=== PATIENT | female | born 2000 | race Hispanic/Latino ===

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

== ENCOUNTER 2020-03-09 19:21 | Emergency (ER) | payer SELFPAY ==
[~2020-03-09] VITALS: Ht 157.5 cm; Wt 70.3 kg
--- OUTSIDE RECORDS SUMMARY | 2020-03-09 19:23 | XMS REPORT ---
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 Allergies, Adverse Reactions, Alerts Allergy Name Allergy Type Status Severity Reaction(s) Onset Date Inactive Date Treating Clinician Comments No Known Allergies DA Active U 2016-12-22 00:00:00 Medications This patient has no known medications. Encounters Start Date/Time End Date/Time Encounter Type Admission Type Attending Clinicians Care Facility Care Department Encounter ID 2019-10-15 20:17:00 2019-10-15 20:17:00 Emergency E [id number] 2019-10-09 16:25:00 2019-10-09 16:25:00 Emergency E [facility] [id number] Results Test Description Test Time Test Comments Text Results Atomic Results Result Comments - XR CHEST 1 V 2020-03-03 06:12:00 Name: YULIA LEWIS : 2000 Age/S:20 /F [address] [facility] Unit#:[id number] Loc: [place] [address] Phys: Keyon Lew MD Dis Date: PHONE #: [phone] Status: PRE ER FAX #: [phone] Exam Date: 03/03/2020 Reason: Cough EXAMS: CPT CODE: [id number] XR CHEST 1 V 81125 AFTER HOURS SERVICE ON: 03/03/2020 6:12 AM AP Portable Chest Location Code M12 HISTORY: Cough FINDINGS: There are no infiltrates. There are no pleural effusions. There is no pneumothorax. Cardiac silhouette and mediastinum appear within normal limits. IMPRESSION: No active pulmonary findings. at 0612 Reported and signed by: Susan Meléndez M.D. CC: Keyon Lew MD Technologist: FERNANDA OLIVER RT(R),RDMS,CT Trnscrpt Data: 03/03/2020 (611) [email or web address] Orig Print D/T: S: 03/03/2020 (16) PAGE 1 Signed Report - US TRANSVAGINAL NON OB 2019-05-29 21:02:00 [facility] 2000 Age[facility]S: 19 / F [address] [facility] Unit #: [id number] Loc: [place] [address] Phys: Keyon Lew MD Acct: [id number] Dis Date: Status: REG ER PHONE #: [phone] Exam Date: 05/29/20192044 FAX #: [phone] Reason: PAIN EXAMS: CPT CODE: [id number] [place] [address] REASON FOR EXAM: Pelvic pain and abnormal bleeding EXAM ORDER DATE: 05/29/2019 7:45 PM Attending M.D.: Keyon Lew MD PROCEDURE: - US PELVIS COMPLETE, - DUP AB/PEL/SC COMP, - US TRANSVAGINAL NON OB FINDINGS: The transabdominal ultrasound shows the uterus measured 6.4 x 3.5 cm. The ovaries were not seen on the transabdominal exam. No evidence of free fluid or adnexal mass on the transabdominal exam. The transvaginal ultrasound shows the endometrial stripe measured 1 cm. The right ovary measured 2.6 x 1.6 cm. The left ovary measured 2 x 1.7 cm. Unremarkable ovarian flow is seen. Duplex scans of the ovarian arteries were performed. Cardenas scale images were supplemented with color-flow Doppler. Doppler flow velocity analysis (duplex Doppler) was performed. No fluid seen in the cul-de-sac. No evidence of IUP. IMPRESSION: Small (1.3 cm) complex area within the endometrial canal suggestive of blood products/debris. No other significant findings at 2101 Reported and signed by: Connor Byren M.D. CC: Keyon Lew MD Technologist: MARTA KENDALL Trnscb Date/Time: 05/29/2019 (2101) [email or web address] Orig Print D/T: S: 05/29/2019 (2104) Probe: [id number] PAGE 1 Signed Report - DUP AB/PEL/SC COMP 2019-05-29 21:02:00 [facility] 2000 Age/S: 19 / F [address] [facility] Unit #: [id number] Loc: [place] [address] Phys: Keyon Lew MD Acct: [id number] Dis Date: Status: REG ER PHONE #: [phone] Exam Date: 05/29/20192044 FAX #: [phone] Reason: PELVIC PAIN EXAMS: CPT CODE: [id number] DUP AB/PEL/SC COMP 51364 REASON FOR EXAM: Pelvic pain and abnormal bleeding EXAM ORDER DATE: 05/29/2019 7:45 PM Attending Min: Keyon Lew MD PROCEDURE: - US PELVIS COMPLETE, - DUP AB/PEL/SC COMP, - US TRANSVAGINAL NON OB FINDINGS: The transabdominal ultrasound shows the uterus measured 6.4 x 3.5 cm. The ovaries were not seen on the transabdominal exam. No evidence of free fluid or adnexal mass on the transabdominal exam. The transvaginal ultrasound shows the endometrial stripe measured 1 cm. The right ovary measured 2.6 x 1.6 cm. The left ovary measured 2 x 1.7 cm. Unremarkable ovarian flow is seen. Duplex scans of the ovarian arteries were performed. Cardenas scale images were supplemented with color-flow Doppler. Doppler flow velocity analysis (duplex Doppler) was performed. No fluid seen in the cul-de-sac. No evidence of IUP. IMPRESSION: Small (1.3 cm) complex area within the endometrial canal suggestive of blood products/debris. No other significant findings at 2102 Reported and signed by: Connor Byrne M.D. CC: Keyon Lew MD Technologist: MARTA KENDALL Trnscb Date/Time: 05/29/2019 (2101) [email or web address] Orig Print D/T: S: 05/29/2019 (2104) Probe: PAGE 1 Signed Report - US PELVIS COMPLETE 2019-05-29 21:02:00 Name: YULIA LEWIS : 2000 Age/S: 19 / F [address] [facility] Unit #: [id number] Loc: [place] [address] Phys: Keyon Lew MD Acct: [id number] Dis Date: Status: REG ER PHONE #: [phone] Exam Date: 05/29/20192044 FAX #: [phone] Reason: Pelvic pain and abnormal bleeding EXAMS: CPT CODE: [id number] US PELVIS COMPLETE 34774 REASON FOR EXAM: Pelvic pain and abnormal bleeding EXAM ORDER DATE: 05/29/2019 7:45 PM Attending Min: Keyon Lew MD PROCEDURE: - US PELVIS COMPLETE, - DUP AB/PEL/SC COMP, - US TRANSVAGINAL NON OB FINDINGS: The transabdominal ultrasound shows the uterus measured 6.4 x 3.5 cm. The ovaries were not seen on the transabdominal exam. No evidence of free fluid or adnexal mass on the transabdominal exam. The transvaginal ultrasound shows the endometrial stripe measured 1 cm. The right ovary measured 2.6 x 1.6 cm. The left ovary measured 2 x 1.7 cm. Unremarkable ovarian flow is seen. Duplex scans of the ovarian arteries were performed. Cardenas scale images were supplemented with color-flow Doppler. Doppler flow velocity analysis (duplex Doppler) was performed. No fluid seen in the cul-de-sac. No evidence of IUP. IMPRESSION: Small (1.3 cm) complex area within the endometrial canal suggestive of blood products/debris. No other significant findings at 2102 Reported and signed by: Connor Byrne M.D. CC: Keyon Lew MD; Bessy Aranda Technologist: MARTA KENDALL Trnrib Date/Time: 05/29/2019 (2101) Blanca Orig Print D/T: S: 05/29/2019 (2104) Probe: PAGE 1 Signed Report URINALYSIS COMPLETE 2019-05-29 20:00:00 UA COLOR (test code=COLU) YELLOW YELLOW UA APPEARANCE (test code=APPU) HAZY CLEAR UA GLUCOSE DIPSTICK (test code=DGLUU) norm mg/dL NEGATIVE UA BILIRUBIN DIPSTICK (test code=BILU) NEGATIVE mg/dL NEGATIVE UA KETONE DIPSTICK (test code=KETU) 5 (Trace) mg/dL NEGATIVE UA SPECIFIC GRAVITY (test code=SGU) 1.020 1.001-1.035 UA BLOOD DIPSTICK (test code=MAGDALENA) 250 (4+) Anmol/uL NEGATIVE UA PH DIPSTICK (test code=SALVADOR) 5.0 5.0-8.0 UA PROTEIN DIPSTICK (test code=PROU) neg mg/dL Neg-15 UA UROBILINIOGEN DIPSTICK (test code=URO) 1 mg/dL 0.0-0.2 UA NITRITE DIPSTICK (test code=JANE) NEGATIVE NEGATIVE UA LEUKOCYTE ESTERASE DIPSTICK (test code=LEUU) 100 Silvana/uL (1+) uL NEGATIVE UA WBC (test code=WBCU) 3-5 per HPF 0-5 UA RBC (test code=RBCU) 5-10 per HPF 0-5 UA EPITHELIAL CELLS (test code=EPIU) Few (2-5/hpf) per HPF Few UA BACTERIA (test code=BACU) FEW per HPF NONE UA MUCUS (test code=MUCU) MODERATE per LPF NONE-FEW Urine Source? Clean CatchUR HCG [id number] 20:00:00* Test Item Value Reference Range Comments UR HCG QUAL (test code=HCGQLU) NEGATIVE This HCGQL test is NOT applicable for MALE patients.Check with nurse about probable order error.If Tumor Marker Test needed, nurse should order test "HCGTU"(Test #[id number]) Urine Source? Clean CatchURINALYSIS [id number] 19:56:00* Test Item Value Reference Range Comments UA COLOR (test code=COLU) YELLOW YELLOW UA APPEARANCE (test code=APPU) HAZY CLEAR UA GLUCOSE DIPSTICK (test code=DGLUU) norm mg/dL NEGATIVE UA BILIRUBIN DIPSTICK (test code=BILU) NEGATIVE mg/dL NEGATIVE UA KETONE DIPSTICK (test code=KETU) 5 (Trace) mg/dL NEGATIVE UA SPECIFIC GRAVITY (test code=SGU) 1.020 1.001-1.035 UA BLOOD DIPSTICK (test code=MAGDALENA) 250 (4+) Anmol/uL NEGATIVE UA PH DIPSTICK (test code=SALVADOR) 5.0 5.0-8.0 UA PROTEIN DIPSTICK (test code=PROU) neg mg/dL Neg-15 UA UROBILINIOGEN DIPSTICK (test code=URO) 1 mg/dL 0.0-0.2 UA NITRITE DIPSTICK (test code=JANE) NEGATIVE NEGATIVE UA LEUKOCYTE ESTERASE DIPSTICK (test code=LEUU) 100 Silvana/uL (1+) uL NEGATIVE UA WBC (test code=WBCU) per HPF 0-5 UA RBC (test code=RBCU) per HPF 0-5 UA EPITHELIAL CELLS (test code=EPIU) per HPF Few UA BACTERIA (test code=BACU) per HPF NONE Urine Source? Clean CatchUR HCG [id number] 19:56:00* Test Item Value Reference Range Comments UR HCG QUAL (test code=HCGQLU) NEGATIVE This HCGQL test is NOT applicable for MALE patients.Check with nurse about probable order error.If Tumor Marker Test needed, nurse should order test "HCGTU"(Test #550.64704) Urine Source? Clean CatchURINALYSIS [id number] 19:54:00* Test Item Value Reference Range Comments UA COLOR (test code=COLU) YELLOW YELLOW UA APPEARANCE (test code=APPU) HAZY CLEAR UA GLUCOSE DIPSTICK (test code=DGLUU) norm mg/dL NEGATIVE UA BILIRUBIN DIPSTICK (test code=BILU) NEGATIVE mg/dL NEGATIVE UA KETONE DIPSTICK (test code=KETU) 5 (Trace) mg/dL NEGATIVE UA SPECIFIC GRAVITY (test code=SGU) 1.020 1.001-1.035 UA BLOOD DIPSTICK (test code=MAGDALENA) 250 (4+) Anmol/uL NEGATIVE UA PH DIPSTICK (test code=SALVADOR) 5.0 5.0-8.0 UA PROTEIN DIPSTICK (test code=PROU) neg mg/dL Neg-15 UA UROBILINIOGEN DIPSTICK (test code=URO) 1 mg/dL 0.0-0.2 UA NITRITE DIPSTICK (test code=JANE) NEGATIVE NEGATIVE UA LEUKOCYTE ESTERASE DIPSTICK (test code=LEUU) 100 Silvana/uL (1+) uL NEGATIVE UA WBC (test code=WBCU) per HPF 0-5 UA RBC (test code=RBCU) per HPF 0-5 UA EPITHELIAL CELLS (test code=EPIU) per HPF Few UA BACTERIA (test code=BACU) per HPF NONE Urine Source? Clean CatchUR HCG [id number] 19:54:00* Test Item Value Reference Range Comments UR HCG QUAL (test code=HCGQLU) Urine Source? Clean Catch
[2020-03-09] MEDS ORDERED: ACETAMINOPHEN/CODEINE 300MG - 30MG TAB PO ONE (20:30)
--- NOTE | 2020-03-09 21:14 | Diagnostic Imaging Report ---
ADDENDUM #1 ADDENDUM: There is an acute, minimally displaced, oblique fracture of the mid/distal aspect of the fifth toe proximal phalanx. No evidence of intra-articular extension. The above findings were discussed with Dr. Garcia on 03/09/2020 at 9:28 PM. Signed by: Dr. Jessica Doran MD on 03/09/2020 9:30 PM ORIGINAL REPORT Exam: Left foot radiographs-3 views History: Foot pain. Comparison: None. Findings/Impression: No evidence of acute fracture, malalignment, or soft tissue abnormality. Signed by: Dr. Jessica Doran MD on 03/09/2020 9:10 PM
== END 2020-03-09 21:37 | disposition home or self-care (01) ==
LOC: ER 19:21
DX: S92.512A Displaced fracture of proximal phalanx of left lesser toe(s), initial encounter for closed fracture (principal); W22.03XA Walked into furniture, initial encounter; Y92.008 Other place in unspecified non-institutional (private) residence as the place of occurrence of the external cause
CPT/HCPCS: 99283

== ENCOUNTER 2024-11-05 00:14 | Emergency (ER) | payer BC ==
[~2024-11-05] VITALS: Ht 154.9 cm; Wt 52.2 kg
[2024-11-05 00:21] VITALS: TEMP 97.9
[2024-11-05 01:15] LABS: AMPHETAMINES SCREEN,URINE NEGATIVE (NEGATIVE); BENZODIAZEPINES SCREEN,URINE NEGATIVE (NEGATIVE); CLARITY,URINE CLEAR (CLEAR); COLOR,URINE YELLOW (YELLOW); GLUCOSE, URINE NEGATIVE (NEGATIVE); KETONES,URINE NEGATIVE (NEGATIVE); LEUKOCYTE ESTERASE ,URINE NEGATIVE (NEGATIVE); NITRITE,URINE NEGATIVE (NEGATIVE); OPIATES SCREEN,URINE NEGATIVE (NEGATIVE); PH,URINE 7 (5 - 7); PHENCYCLIDINE SCREEN,URINE NEGATIVE (NEGATIVE); PROTEIN,URINE DIPSTICK NEGATIVE (NEGATIVE)
[2024-11-05 01:16] LABS: BILIRUBIN,URINE NEGATIVE (NEGATIVE); CANNABINOIDS SCREEN,URINE POSITIVE (NEGATIVE); COCAINE SCREEN,URINE NEGATIVE (NEGATIVE); METHADONE SCREEN, URINE NEGATIVE (NEGATIVE); URINE UROBILINOGEN 0.2 mg/dL (0.2 - 1)
[2024-11-05 01:17] LABS: PREGNANCY TEST, URINE NEGATIVE (NEGATIVE)
[2024-11-05 01:45] LABS: BASOPHILS # (AUTO) 0.1 (0.0-0.1); BASOPHILS % 0.8 % (0.0-1.0); EOSINOPHILS # (AUTO) 0.2 (0.0-0.4); EOSINOPHILS % 1.4 % (0.0-6.0); HEMATOCRIT 40.6 % (34.2-44.1); HEMOGLOBIN 12.9 g/dL (12.0-16.0); LYMPHOCYTES # (AUTO) 5.1 (1.0-3.2); LYMPHOCYTES % 43.3 % (18.0-39.1); MEAN CORPUSCULAR HEMOGLOBIN 32.1 pg (28-32); MEAN CORPUSCULAR HGB CONC 31.8 g/dL (31-35); MONOCYTES # (AUTO) 0.7 (0.2-0.8); MONOCYTES % 5.6 % (4.4-11.3); NEUTROPHILS # (AUTO) 5.7 (2.1-6.9); NEUTROPHILS % 48.6 % (38.7-80.0); PLATELET COUNT 385 x10e3/uL (140-360); RED BLOOD COUNT 4.02 x10e6/uL (3.6-5.1); RED CELL DISTRIBUTION WIDTH 13.2 % (11.7-14.4); WHITE BLOOD COUNT 11.77 x10e3/uL (4.8-10.8)
[2024-11-05 02:01] LABS: ANION GAP 15.4 mmol/L (8-16); CALCIUM 9.6 mg/dL (8.4-10.2); CREATININE, SERUM 0.73 mg/dL (0.57-1.11); POTASSIUM 4.4 mmol/L (3.5-5.1)
[2024-11-05 02:11] VITALS: PULSE 58; RESP 17
[2024-11-05 02:24] VITALS: BP 103/76; PULSE 64; RESP 19; TEMP 98; O2SAT 100
[2024-11-05 02:25] LABS: BACTERIA,URINE MODERATE /HPF; EPITHELIAL CELLS,URINE FEW /LPF; RBC,URINE 0-5 /HPF (0-5); WBC,URINE (MAN) 0-5 /HPF (0-5)
== END 2024-11-05 02:29 | disposition home or self-care (01) ==
LOC: ER 00:16
DX: R42 Dizziness and giddiness (principal); R07.89 Other chest pain; K76.9 Liver disease, unspecified
CPT/HCPCS: 36415; 71045; 80048; 80307; 81001; 81025; 84484; 85025; 93005; 99284